=== PATIENT | female | born 1995 | race Caucasian/White ===

== ENCOUNTER → 2018-05-30 | Outpatient (CLI) | payer BC, MEDICAID ==
[~2018-05-30] MED LIST: PNV91TAB3 PO
--- NOTE | 2018-05-30 13:13 | Diagnostic Imaging Report ---
PROCEDURE: US OB SINGLE FETUS <14 WKS. TECHNIQUE: Multiple real-time grayscale images were obtained over the gravid uterus in various projections. INDICATION: Dating. COMPARISON: None. FINDINGS: There is a single live intrauterine gestation demonstrated. The crown-rump length measures 3.4 cm which corresponds to an estimated gestational age of 10 weeks 3 days. Cardiac activity is detected with the heart rate of 167 beats per minute. Neither ovary is demonstrated. No adnexal mass or free fluid is seen. IMPRESSION: Single live intrauterine gestation dating 10 weeks 3 days based on today's ultrasound with an BRANDON of 12/23/2018. No acute abnormality is seen. heart rate is 167 beats per minute. Dictated by: Dictated on workstation # [id number]
== END ==
LOC: RAD 10:21
PROVIDERS: ATTEND Family Medicine
DX: Z34.91 Encounter for supervision of normal pregnancy, unspecified, first trimester (principal); Z3A.10 10 weeks gestation of pregnancy
CPT/HCPCS: 76801

== ENCOUNTER → 2018-08-29 | Outpatient (CLI) | payer BC, MEDICAID ==
--- NOTE | 2018-08-29 12:22 | Diagnostic Imaging Report ---
INDICATION: survey. TECHNIQUE: Multiple real-time grayscale images were obtained over the gravid uterus. COMPARISON: 05/30/2018. FINDINGS: The previous OB ultrasound exam of 05/30/2018 noted a single live intrauterine at approximately 10 weeks 3 days gestation +/-1 week. On this exam, the fetus is again identified. The fetus is in transverse presentation. heart motion was noted and a rate of 129 BPM was recorded. There were no abnormalities noted. The growth parameters are fairly uniform and have progressed as expected since the prior exam. The estimated weight is in the 11th percentile. The placenta is anterior and there is no previa. The amniotic fluid volume is within normal limits. IMPRESSION: 1. There is a single live fetus at approximately 23 weeks 3 days gestation +/-1 week. The EDC remains December 23, 2018. 2. There were no abnormalities identified. 3. The growth parameters are fairly uniform but the estimated weight is only in the 11th percentile. It may prove worthwhile to have a short-term (2-4 week) followup ultrasound exam for further evaluation of the growth. Biometrical measurements are as follows: Biparietal 5.87 cm, age 24 weeks 1 days. Head circumference 22.02 cm, age 24 weeks 1 days. Abdominal circumference 17.38 cm, age 22 weeks 3 days. Femur length 3.66 cm, age 21 weeks 5 days. Sonographic estimate age: 21 weeks 1 days. Sonographic estimated date of delivery: 12/25/2018. Estimated Weight: 491 gm (+/- 72 gm). LMP percentile: 6%. heart rate: 129 beats per minute. number: 1 of 1. Dictated by: Dictated on workstation # [id number]
== END ==
LOC: RAD 10:05
PROVIDERS: ATTEND Family Medicine
DX: Z36.89 Encounter for other specified antenatal screening (principal); Z3A.23 23 weeks gestation of pregnancy
CPT/HCPCS: 76805

== ENCOUNTER → 2018-10-31 | Outpatient (CLI) | payer BC, MEDICAID ==
--- NOTE | 2018-10-31 14:31 | Diagnostic Imaging Report ---
INDICATION: Evaluate growth. TECHNIQUE: Multiple real-time grayscale images were obtained over the gravid uterus. COMPARISON: 08/29/2018. FINDINGS: There is a single live fetus in a cephalic presentation. heart rate was recorded at 146 beats per minute. Placenta is anterior. Amniotic fluid volume is normal. Biometrical measurements are as follows: Biparietal 8.56 cm, age 34 weeks 4 days. Head circumference 30.39 cm, age 33 weeks 6 days. Abdominal circumference 27.59 cm, age 31 weeks 5 days. Femur length 6.40 cm, age 33 weeks 1 days. Sonographic estimate age: 33 weeks 3 days. Sonographic estimated date of delivery: 12/16/18. Estimated Weight: 1995 gm (+/- 291 gm). LMP percentile: 43%. heart rate: 146 beats per minute. number: 1 of 1. IMPRESSION: Single live IUP measuring approximately 33 weeks gestational age showing normal interval growth when compared with prior exam. No complicating features are detected. Dictated by: Dictated on workstation # [id number]
== END ==
LOC: RAD 10:30
PROVIDERS: ATTEND Family Medicine
DX: Z36.89 Encounter for other specified antenatal screening (principal); Z3A.33 33 weeks gestation of pregnancy
CPT/HCPCS: 76816

== ENCOUNTER 2018-12-15 21:21 | Inpatient (IN) | payer BC, MEDICAID ==
[~2018-12-15] VITALS: Ht 170.2 cm; Wt 78.0 kg
--- NOTE | 2018-12-15 21:32 | NUR ---
OKSANA WHATLEY S presented to unit via from ED, accompanied by FAMILY, with c/o LABOR. OKSANA WHATLEY S weighed, gowned, voided, and to bed. EFHM and TOCO applied, VS taken. OKSANA WHATLEY S oriented to bed controls, call light, TV, heat, and A/C controls.
[2018-12-15] MEDS ORDERED: D5 LR IV SOLUTION 1,000 ML IV ONE (21:44)
[2018-12-15] MEDS ORDERED: MEPIVACAINE (CARBOCAINE) 2% 50 ML VIAL ONE (21:44)
[2018-12-15] MEDS ORDERED: OXYTOCIN/NORMAL SALINE 500 ML IV ONE (21:44)
[2018-12-15 21:45] VITALS: BP 128/78
--- OUTSIDE RECORDS SUMMARY | 2018-12-15 21:51 | XMS REPORT | Clinical Summary ---
Author Author [facility] [place] Address Unknown Phone Unavailable Care Team Providers Care Beautician Apprentice Name Role Phone PP Unavailable Allergies Comments Active Allergy Reactions Severity Noted Date Fentanyl Itching Medium 07/27/2011 Medications End Date Status Medication Sig Dispensed Refills Start Date Active Norgestim-Eth Estrad Take 1 tablet 0 Triphasic (ORTHO by mouth TRI-CYCLEN LO) daily. 0.18/0.215/0.25 MG-25 MCG [place]. Active hydrocodone-acetaminophen Take 1 tablet 30 tablet 0 (LORTAB) 7.5-500 MG per by mouth 1 tablet every 6 (six) hours as needed for Pain for 25 doses. Active Problems Problem Noted Date Bloody diarrhea 07/27/2011 Social History Date Tobacco Use Types Packs/Day Years Used Never Assessed Sex Assigned at Date Recorded Not on file Industry Job Start Date Occupation Not on file Not on file Not on file Travel End Travel History Travel Start No recent travel history available. Last Filed Vital Signs Time Taken Vital Sign Reading 07/28/2011 12:28 PM CDT Blood Pressure 110/61 07/28/2011 12:28 PM CDT Pulse 72 07/28/2011 12:28 PM CDT Temperature 36.8 C (98.3 F) 07/28/2011 12:28 PM CDT Respiratory Rate 16 07/28/2011 12:28 PM CDT Oxygen Saturation 100% - Inhaled Oxygen - Concentration 07/27/2011 7:49 PM CDT Weight 61.8 kg (136 lb 3.2 oz) - Height - - Body Mass Index - Plan of Treatment Health Maintenance Due Date Last Done Comments Varicella Vaccines (1 of 2006 2 - 13+ 2-dose series) HPV Vaccines (1 - Female 2008 3-dose series) DTaP,Tdap,and Td Vaccines 2012 (1 - Tdap) CERVICAL CANCER SCREENING 2014 Influenza Vaccine (#1) 2018 Results Not on filefrom Last 3 Months Advance Directives For more information, please contact: [address] [address] Date Inactivated Comments Code Status Date Activated 07/28/2011 8:10 PM Full Code 07/26/2011 1:54 PM
[2018-12-15] MEDS ORDERED: D5 LR IV SOLUTION 1,000 ML IV SCH (21:59)
[2018-12-15] MEDS ORDERED: CATHETER FLUSH 10 ML SYR IV SCH (22:00)
[2018-12-15] MEDS ORDERED: MINERAL OIL CONCENTRATE 99.9% 15 ML UDC TOP PRN (22:00)
--- NOTE | 2018-12-15 22:07 | History & Physical-OB ---
OB - Chief Complaint & HPI Date/Time Date of Admission: Date of Admission: Dec 15, 2018 at 21:45 Date seen by a Provider: Dec 15, 2018 Time Seen by a Provider: 22:00 Chief Complaint/History OB-Reason for Admission/Chief: Onset of Labor Hx : 2 Hx Para: 1 Expected Date of Delivery: Dec 20, 2018 Gestational Age in Weeks: 39 Admission Nurse Assessment Rev: Yes History of Labs GBS negative Allergies and Home Medications Allergies Coded Allergies: No Known Drug Allergies (Unverified , 12/15/18) Home Medications Pnv95/Ferrous Fumarate/FA 1 Each Tablet, 1 EACH PO DAILY, (Reported) Patient Home Medication List Home Medication List Reviewed: Yes OB - History Hx of Present Care: Yes Ultrasounds: Normal mid trimester US Obstetrical Complications: None Medical Complications: None Delivery History Hx Blood Disorders: No Adverse Rxn to Tranfusion: No Patient Past Medical History no chronic medical problems Social History/Family History HIV/AIDS: No Sexually Transmitted Disease: No Immunizations Hepatitis A: No Hepatitis B: No Tetanus Booster (TDap): Unknown OB - Admission Exam Physical Exam HEENT: Moist Membranes Heart: Rhythm Normal Lungs: Clear Abdomen: Gravid Cervical Dilatation: 7cm Effacement: 75% Station: -2 Membranes: Intact Heart Rate: 140's Accelerations: Accelerations Present Decelerations: No Decelerations Short Term Variability: Present Contractions on Admission: < 5 Minutes Apart Intensity: Moderate OB - Assessment/Plan/Diagnosis Assessment Assessment: active labor Admission Dx 1. IUP at term 39 weeks in labor Admission Status: Inpatient Order (span 2 midnights) Reason for Inpatient Admission: L&D Plan Plan: Other (labor) ZOË ROJAS MD Dec 15, 2018 22:07
[2018-12-15 22:21] LABS: BASOPHILS % (AUTO) 0 % (0-10); EOSINOPHILS # (AUTO) 0.1 10^3/uL (0.0-0.3); EOSINOPHILS % (AUTO) 1 % (0-10); HEMATOCRIT 39 % (35-52); HEMOGLOBIN 12.5 G/DL (11.5-16.0); LYMPHOCYTES # (AUTO) 1.9 X 10^3 (1.0-4.0); LYMPHOCYTES % (AUTO) 13 % (12-44); MEAN CORPUSCULAR HEMOGLOBIN 26 PG (25-34); MEAN CORPUSCULAR HGB CONC 32 G/DL (32-36); MEAN CORPUSCULAR VOLUME 79 FL (80-99); MEAN PLATELET VOLUME 11.5 FL (7.4-10.4); MONOCYTES # (AUTO) 1.2 X 10^3 (0.0-1.0); MONOCYTES % (AUTO) 8 % (0-12); NEUTROPHILS # (AUTO) 11.4 X 10^3 (1.8-7.8); NEUTROPHILS % (AUTO) 78 % (42-75); PLATELET COUNT 279 10^3/uL (130-400); RED CELL DISTRIBUTION WIDTH 14.9 % (10.0-14.5); WHITE BLOOD COUNT 14.7 10^3/uL (4.3-11.0)
[2018-12-15 22:30] VITALS: BP 121/74
[2018-12-15 22:45] VITALS: BP 114/67
[2018-12-15 23:13] LABS: BAND NEUTROPHILS 13 %; BASOPHILS % (MANUAL) 0 %; EOSINOPHILS % (MANUAL) 2 %; LYMPHOCYTES % (MANUAL) 14 %; METAMYELOCYTES % 1 %; MONOCYTES % (MANUAL) 6 %; NEUTROPHILS % (MANUAL) 64 %; RBC MORPH NORMAL
[2018-12-15 23:15] VITALS: BP 122/73
[2018-12-15 23:45] VITALS: BP 129/76
[2018-12-16] VITALS (14 sets, daily range): BP systolic 103–130; BP diastolic 59–74
[2018-12-16] MEDS ORDERED: OXYTOCIN/NORMAL SALINE 500 ML IV SCH (00:52)
--- NOTE | 2018-12-16 00:52 | OB Labor & Delivery Record ---
L&D History Date of Service Date of Service: Dec 16, 2018 History Expected Date of Delivery: Dec 23, 2018 Gestational Age in Weeks: 38 Hx : 2 Hx Para: 1 Complications Events: Routine care Operative Indications (Cesarea: N/A-Vaginal Delivery Intrapartal Events: None L&D Stage1 Stage One Onset of Labor - Date: Dec 15, 2018 Onset of Labor - Time: 16:00 Monitors and Tracing Monitor Mode: External Heart Rate: 125 Monitor Accelerations: Uniform Monitor Decelerations: Variable Station: -2 Supplier Manager Variability: Average (6-10) Short Term Variability: Present Presentation: Vertex Vital Signs VS - Last 72 Hours, by Label 12/15/18 12/15/18 12/15/18 12/15/18 21:45 22:30 22:45 23:15 Temp 98.1 Pulse 70 82 78 83 Resp 18 18 18 18 B/P (MAP) 128/78 (95) 121/74 (90) 114/67 (83) 122/73 (89) Signs of Distress by FHT Signs of Distress no Rupture of Membranes Spontaneous Ruture of Membrane: No Amniotic Membrane Rupture Time: 2219 Amniotic Membrane Fluid Desc.: Clear Induction/Anesthesia Medications none L&D Stage2 Stage Two Stage II Date: Dec 16, 2018 Stage II Time: 00:24 Monitors and Tracing Monitor Mode: External Heart Rate: 125 Monitor Accelerations: Uniform Monitor Decelerations: Variable Detention Variability: Average (6-10) Short Term Variability: Present Position: Left Occiput Anterior Presentation: Vertex Signs of Distress by FHT Signs of Distress no Cord Descript/Complications Cord Vessel Description: 3 Vessels Delivery Type Infant Delivery Method: Spontaneous Vaginal Anterior Shoulder: Left Episiotomy/Perineal Laceration Laceraction(s)/Extensions: Yes Episiotomy Description: Periurethral Extnsion/lac (x2) Sutures Used: Vicryl Condition of Infant Delivery 1 minute Comment: 7 5 minute Comment: 9 Condition of Condition of : Living Exam: No Observed Abnormalities Resuscitation Resuscitation: N/A - Spontaneous Resp L&D Stage3 Stage Three Stage III Date: Dec 16, 2018 Stage III Time: 00:32 Pictocin Pitocin ml/hr: 125 Placenta Delivery Placenta Delivery: Spontaneous Delivery Summary Summary Estimated blood loss (mL): 300 Condition of Delivery Examined: Cervix Examined Post Hemorrhage: No Intervention Required none ZOË ROJAS MD Dec 16, 2018 00:52
[2018-12-16] MEDS ORDERED: IBUPROFEN 600 MG (MOTRIN) TAB PO ONE (00:54)
[2018-12-16] MEDS ORDERED: TETANUS,DIPTH,PERTUSS P/F (BOOSTRIX) 0.5 ML VIAL IM ONE (01:00)
[2018-12-16] MEDS ORDERED: MEASLES,MUMPS,RUBELLA 1 EA INJ SQ ONE (01:00)
[2018-12-16] MEDS ORDERED: BENZOCAINE/MENTHOL (DERMOPLAST) 56 ML CAN TP PRN (01:00)
[2018-12-16] MEDS ORDERED: WITCH HAZEL(TUCKS) 40 EA JAR TOP PRN (01:00)
[2018-12-16] MEDS ORDERED: MEPIVACAINE (CARBOCAINE) 2% 20 ML VIAL IJ ONE (01:28)
[2018-12-16] MEDS: IBUPROFEN 600 MG (MOTRIN) TAB PO SCH ×4 (01:30→22:00)
[2018-12-16] MEDS ORDERED: HYDROcodone/APAP 5 MG/325 MG (LORTAB) TAB ONE (02:31)
[2018-12-16] MEDS: HYDROcodone/APAP 5 MG/325 MG (LORTAB) TAB PO PRN ×3 (02:39→19:45)
--- NOTE | 2018-12-16 03:00 | NUR ---
Pt assisted to w'c and taken to 307. Pt orientated to room. pt assisted to bathroom. pt unable to void at this time. pericare completed. pt ambulated back to bed. info papers discussed. pt denies any needs. will continue to monitor.
--- NOTE | 2018-12-16 03:31 | NUR ---
release of products signed by patient. Placenta turned over to mother.
[2018-12-16] MEDS ORDERED: CATHETER FLUSH 10 ML SYR IV SCH (06:00)
--- NOTE | 2018-12-16 08:10 | NUR ---
THIS RN TO PT'S BEDSIDE. PT IN BED, MEDS GIVEN PO; SEE EMAR FOR FURTHER. VS OBTAINED. INITIAL SHIFT ASSESSMENT COMPLETED; SEE INTERVENTION FOR FURTHER. PT DENIES ANY NEEDS OR QUESTIONS AT THIS TIME. CALL LIGHT WITHIN REACH.
[2018-12-16] MEDS ORDERED: FLU QUADRIvalent (5+ YOA) 2018-2019 (AFLURIA) 0.5 ML IM ONE (08:15)
--- NOTE | 2018-12-16 11:26 | NUR ---
LORTAB PROVIDED PER REQUEST PT VOICES THAT SHE HAD TWO EXTREMELY PAINFUL CRAMPS THAT SHE COULDN'T CATCH HER BREATH ON. DENIES ANY PAIN CURRENTLY. PT SWADDLING INFANT. S/O AT THE BEDSIDE. NO FURTHER NEEDS VOICED AT THIS TIME.
--- NOTE | 2018-12-16 16:30 | NUR ---
PT RESTING IN BED, S/O AND AT THE BEDSIDE. VS OBTAINED. ROUTINE MOTRIN GIVEN PO; SEE EMAR FOR FURTHER. STORK TABLE REMOVED FROM ROOM. FRESH ICE WATER PROVIDED. NO FURTHER NEEDS VOICED.
[2018-12-17] MEDS: HYDROcodone/APAP 5 MG/325 MG (LORTAB) TAB PO PRN (05:46)
[2018-12-17] MEDS: IBUPROFEN 600 MG (MOTRIN) TAB PO SCH ×2 (05:46→11:57)
[2018-12-17 05:47] VITALS: BP 119/67
[2018-12-17 06:46] LABS: BASOPHILS % (AUTO) 0 % (0-10); EOSINOPHILS # (AUTO) 0.1 10^3/uL (0.0-0.3); EOSINOPHILS % (AUTO) 1 % (0-10); HEMATOCRIT 31 % (35-52); HEMOGLOBIN 9.7 G/DL (11.5-16.0); LYMPHOCYTES # (AUTO) 2.1 X 10^3 (1.0-4.0); LYMPHOCYTES % (AUTO) 15 % (12-44); MEAN CORPUSCULAR HEMOGLOBIN 25 PG (25-34); MEAN CORPUSCULAR HGB CONC 32 G/DL (32-36); MEAN CORPUSCULAR VOLUME 80 FL (80-99); MEAN PLATELET VOLUME 11.6 FL (7.4-10.4); MONOCYTES # (AUTO) 0.9 X 10^3 (0.0-1.0); MONOCYTES % (AUTO) 7 % (0-12); NEUTROPHILS % (AUTO) 78 % (42-75); PLATELET COUNT 213 10^3/uL (130-400); RED CELL DISTRIBUTION WIDTH 14.9 % (10.0-14.5); WHITE BLOOD COUNT 14.2 10^3/uL (4.3-11.0)
--- NOTE | 2018-12-17 08:10 | Discharge Summary ---
Diagnosis/Chief Complaint Date of Admission Dec 15, 2018 at 21:45 Date of Discharge Discharge Date: Dec 17, 2018 Discharge Time: 11:00 Admission Diagnosis Admission Diagnosis 1. IUP at term, 39 weeks Discharge Diagnosis 1. IUP at term, 39 weeks 2. Anemiablood loss from delivery Reason Hospital Visit 23 yo G2T2 who initially presented in labor during the evening of Dec 15, 2018. Discharge Summary-OBS Procedures 1. 2. Repair of L sided periurethral tear Discharge Physical Examination Allergies: Coded Allergies: No Known Drug Allergies (Unverified , 12/15/18) Vitals & I&Os Vital Signs Date Time Temp Pulse Resp B/P (MAP) Pulse Ox O2 Delivery O2 Flow Rate FiO2 12/17/18 05:47 97.8 77 18 119/67 (84) 98 Room Air General Appearance: No Acute Distress HEENT: Mucous Memb Moist/[place] Respiratory: Clear to Auscultation Cardiovascular: Regular Rate Abdominal: Soft (with uterus firm) Hospital Course Patient was admitted during the evening of December 15, 2018 in obvious labor at 39 weeks 1 day gestation. She underwent amniotomy with placement scalp electrode. The fluid was noted to be clear. Patient continued to labor requiring no Pitocin augmentation. She ultimately went on the completion during the treating and pumping supervisor of December 16, 2018 and delivered a term viable male with Apgars of 8 at 1 minute and 9 at 5 minutes. There was no episiotomy at patient's request. There was a left-sided periurethral tear that was repaired with 3-0 Vicryl. Following delivery patient underwent routine care orders. She was noted to have hemoglobin on December 17 of 9.7 compared to 12.5 on admission. Patient did not complain of any abnormal bleeding following delivery. She was without lightheadedness She denied any chest pain, shortness of breath or leg pain. She tolerated regular diet and she was felt ready for dismissal during the morning of December 17, 2018. Patient received prescription for ibuprofen for uterine cramping and 5 mg hydrocodone for significant pain to the left periurethral area. She will follow up in 6 weeks. Pending Labs Laboratory Tests 12/17/18 06:34: White Blood Count 14.2, Red Blood Count 3.87, Hemoglobin 9.7, Hematocrit 31, Mean Corpuscular Volume 80, Mean Corpuscular Hemoglobin 25, Mean Corpuscular Hemoglobin Concent 32, Red Cell Distribution Width 14.9, Platelet Count 213, Mean Platelet Volume 11.6, Neutrophils (%) (Auto) 78, Lymphocytes (%) (Auto) 15 , Monocytes (%) (Auto) 7, Eosinophils (%) (Auto) 1, Basophils (%) (Auto) 0, Neutrophils # (Auto) 11.0, Lymphocytes # (Auto) 2.1, Monocytes # (Auto) 0.9, Eosinophils # (Auto) 0.1, Basophils # (Auto) 0.0 Discharge Instructions to patient/family Please see electronic discharge instructions given to patient. Discharge Medications Reviewed and agree with Discharge Medication list on patient's Discharge Instruction sheet Clinical Quality Measures DVT/VTE Risk/Contraindication: Risk Factor Score Per Nursin RFS Level Per Nursing on Admit: 1=Low/No VTE PPX ZOË ROJAS MD Dec 17, 2018 08:10
--- NOTE | 2018-12-17 08:11 | Discharge Inst-Women's Service ---
Discharge Inst-Women's Serv Depart Medication/Instructions New, Converted or Re-Newed RX: RX on Chart Consults/Follow Up Additional Follow Up: Yes (Dr Rojas in 6 weeks.) Activity Activity: Activity as Tolerated Driving Instructions: No Driving for 1 Week Nothing Inside Vagina: No [place] (for 6 weeks.) Diet Discharge Diet: Regular Diet Return to The Hospital For: as below Symptoms to Report to : Swelling Increased, Bleeding Excessive, Fever Over 101 Degrees F, Vaginal Discharge Foul For Any Problems or Questions: Contact Your Physician ZOË ROJAS MD Dec 17, 2018 08:11
[2018-12-17] MEDS ORDERED: IBUP-844 PO (08:13)
[2018-12-17] MEDS ORDERED: ACHD5005 PO (08:13)
--- NOTE | 2018-12-17 08:35 | NUR ---
PT RESTING, HOLDING . DENIES ANY NEEDS AT THIS TIME. S/O AT THE BEDSIDE.
--- NOTE | 2018-12-17 10:21 | NUR ---
PT EATING BREAKFAST. DISCHARGE PAPERS PROVIDED AND REVIEWED WITH PT, PT VERBALIZES UNDERSTANDING AND DENIES ANY QUESTIONS AT THIS TIME. PAPER SIGNED.
[2018-12-17 11:56] VITALS: BP 114/59
--- NOTE | 2018-12-17 11:57 | NUR ---
PT PREPPING TO BREASTFEED . VS OBTAINED. ASSESSMENT COMPLETED; SEE INTERVENTION FOR FURTHER. ROUTINE MOTRIN GIVEN PO; SEE EMAR FOR FURTHER. AWAITING NURSERY RN TO COMPLETE DISCHARGE.
--- NOTE | 2018-12-17 12:43 | NUR ---
PT DISCHARGED FROM [facility] TO [facility] STABLE CONDITION [facility] BY EMILY YANES RN. S/O IS PULLING THE CAR UP TO THE MAIN HOSPITAL ENTRANCE.
== END 2018-12-17 12:43 | disposition home or self-care (01) | DRG 806 ==
LOC: WSo 21:21 → LDRP 21:26 → WSo 21:45 → LDRP 12-16 01:52
PROVIDERS: ADMIT Family Medicine; ATTEND Family Medicine
PROC: 10E0XZZ Delivery of Products of Conception, External Approach (ICD-10-PCS; principal; 2018-12-16)
PROC: 0UQMXZZ Repair Vulva, External Approach (ICD-10-PCS; 2018-12-16)
DX: O71.82 Other specified trauma to perineum and vulva (principal); O90.81 Anemia of the puerperium; D62 Acute posthemorrhagic anemia; Z3A.39 39 weeks gestation of pregnancy; Z37.0 Single live birth
CPT/HCPCS: 36415; 85007; 85025; 85027; 86850; 86900; 86901; 99212

== ENCOUNTER → 2019-01-02 | Outpatient (CLI) | payer BC, MEDICAID ==
--- NOTE | 2019-01-02 15:52 | Diagnostic Imaging Report ---
PROCEDURE: US PELVIC (NON OB) TECHNIQUE: Multiple real-time grayscale images were obtained over the pelvis in various projections transabdominally. INDICATION: Pelvic pain and passing clots, two weeks . FINDINGS: The uterus measures 10.2 x 6.8 x 6.4 cm. There is avascular hypoechoic debris within the endometrial canal measuring up to 1.3 cm in thickness. No myometrial mass. By transabdominal imaging, the ovaries are poorly seen. No concerning adnexal mass or free fluid. IMPRESSION: 1. No retained products of conception. 2. Avascular clot/debris within the endometrial canal. Dictated by: Dictated on workstation # [id number]
== END ==
LOC: RAD 14:19
PROVIDERS: ATTEND Family Medicine
DX: O90.89 Other complications of the puerperium, not elsewhere classified (principal); R10.2 Pelvic and perineal pain; Z3A.00 Weeks of gestation of pregnancy not specified
CPT/HCPCS: 76856